=== PATIENT | male | born 1985 | race Caucasian/White ===

== ENCOUNTER 2018-07-25 15:30 | Inpatient (IN) | payer BC ==
--- NOTE | 2018-07-25 17:10 | ED ---
Psych HPI - General Chief Complaint: Psychiatric Symptoms Stated Complaint: DEPRESSION, SUICIDAL Time Seen by Provider: 07/25/18 15:42 Source: patient Mode of arrival: ambulatory - History of Present Illness Initial Comments: 32-year-old male past medical history depression presents today for chief complaint of suicidal ideation and plan. Patient states that 4 years ago after his divorce he was hospitalized that he went for severe depression and suicidal ideations patient states that he was discharged with medications for depression however 6 months later he discontinued use of medication due to improved symptoms. Patient states that since his discontinuation of medications he's been struggling with depression on and off. He states the past week he has been worsening. History states he had no will to live and held his shot gun to his head however he put it down and did not go through with attempt. Patient was mother about his attempt, who attempted to find a counselor today, she got him an appointment at her primary care provider who told her to take him immediately to the emergency department. Patient came willingly to the ER for evaluation. Upon arrival pt VS stable. BP elevated. Patient denies any homicidal ideations. Patient denies any recent fever, chills, shortness of breath, chest pain, back pain, abdominal pain, nausea or vomiting, numbness or tingling, dysuria or hematuria, constipation or diarrhea, headaches or visual changes, or any other complaints. - Related Data Home Medications Medication Instructions Recorded Confirmed Omeprazole [PriLOSEC] 20 mg PO AC-[id number] 07/25/18 07/25/18 Allergies Allergy/AdvReac Type Severity Reaction Status Date / Time No Known Allergies Allergy Verified 07/25/18 16:28 Review of Systems ROS Statement: Those systems with pertinent positive or pertinent negative responses have been documented in the HPI. ROS Other: All systems not noted in ROS Statement are negative. Constitutional: Denies: fever, chills ENT: Denies: ear pain, throat pain Respiratory: Denies: cough, dyspnea Cardiovascular: Denies: chest pain, palpitations Gastrointestinal: Denies: abdominal pain, nausea, vomiting, diarrhea, constipation Genitourinary: Denies: urgency, dysuria, frequency, hematuria Musculoskeletal: Denies: back pain Skin: Denies: rash, lesions Neurological: Denies: headache, weakness, numbness, paresthesias, confusion, abnormal gait Psychiatric: Reports: depression, suicidal thoughts. Denies: anxiety, auditory hallucinations, visual hallucinations, homicidal thoughts Past Medical History Past Medical History: No Reported History History of Any Multi-Drug Resistant Organisms: None Reported Past Surgical History: No Surgical Hx Reported Past Psychological History: No Psychological Hx Reported Smoking Status: Light tobacco smoker Past Alcohol Use History: None Reported Past Drug Use History: None Reported General Exam - General Exam Comments Initial Comments: General: The patient is awake and alert, in no distress, and does not appear acutely ill. Eye: Pupils are equal, round and reactive to light, extra-ocular movements are intact. No nystagmus. There is normal conjunctiva bilaterally. No signs of icterus. Ears, nose, mouth and throat: There are moist mucous membranes and no oral lesions. Neck: The neck is supple, there is no tenderness or JVD. Cardiovascular: There is a regular rate and rhythm. No murmur, rub or gallop is appreciated. Respiratory: Lungs are clear to auscultation, respirations are non-labored, breath sounds are equal. No wheezes, stridor, rales, or rhonchi. Gastrointestinal: Soft, non-distended, non-tender abdomen without masses or organomegaly noted. There is no rebound or guarding present. No CVA tenderness. Bowel sounds are unremarkable. Musculoskeletal: Normal ROM, no tenderness. Strength 5/5. Sensation intact. Pulses equal bilaterally 2+. Neurological: A&O x 3. CN II-XII intact, There are no obvious motor or sensory deficits. Coordination appears grossly intact. Speech is normal. Skin: Skin is warm and dry and no rashes or lesions are noted. Psychiatric: Cooperative, appropriate mood & affect, normal judgment. Limitations: no limitations Course Vital Signs 07/25/18 07/25/18 15:35 18:23 Temperature 98.7 F Pulse Rate 78 Pulse Rate [ 66 Right Sitting Brachial] Respiratory 18 16 Rate Blood Pressure 153/101 Blood Pressure 132/93 [Right Arm Sitting] O2 Sat by Pulse 98 Oximetry Medical Decision Making - Medical Decision Making TIMOTEO 0.00. Patient medically cleared. I spoke with EPS nurse who will perform an evaluation. EPS spoke with psychiatrist who accepted admission for suicidal ideation/plan. Patient was transferred to the floor in stable condition. Disposition Clinical Impression: Suicidal ideations, Planning to commit suicide Disposition: ADMITTED IP TO THIS [facility] Time of Disposition: 19:18 Decision to Admit Reason: Admit from Decision Time: 19:18
[2018-07-25] MEDS ORDERED: MAGNESIUM HYDROXIDE 2,400 MG/10 ML CUP PO PRN (18:46)
[2018-07-25] MEDS ORDERED: MAG HYDROX/AL HYDROX/SIMETH 30 ML CUP PO PRN (18:46)
[2018-07-25] MEDS ORDERED: ACETAMINOPHEN TAB 325 MG TAB PO PRN (18:46)
--- NOTE | 2018-07-25 23:55 | CONS ---
CONSULTATION DATE OF CONSULTATION: 07/25/2018 REASON FOR CONSULTATION: Medical management requested by Dr. Murdock. CONSULTATION: This is a pleasant 32-year-old patient who has just been established to see Dr. Prieto as a family doctor. The patient lives by himself. 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 The patient has been diagnosed with depression in the past, stopped taking medications about 3 years ago. Over a year ago, the patient's symptoms started coming back and started to get worse. Now, patient presents with worsening depression, suicidal ideation and therefore, presented to the ER. The patient's appetite has gone down. Patient has lost about 20 pounds in the last one month. Trouble sleeping, appetite has gone back. Only sometimes enjoys his work. Because of these symptoms, decided to present to the ER. Admitted for the same. Denies use of recreational drugs. REVIEW OF SYSTEMS: CONSTITUTIONAL: Decreased appetite and weight loss. HEENT: None. RESPIRATORY: None. GASTROINTESTINAL: None. GENITOURINARY: None. MUSCULOSKELETAL: None. Dermatological, hematologic, lymphatic none. PSYCHIATRY: Depressed and suicidal. NEUROLOGICAL none. PAST MEDICAL HISTORY: Depression. PAST SURGICAL HISTORY: None. SOCIAL HISTORY: Lives alone. 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 Does not smoke or drink alcohol. Occasionally does marijuana recreationally. FAMILY HISTORY: Reviewed, noncontributory to presentation. HOME MEDICATIONS: Home medications Prilosec 20 mg a day. ALLERGIES: None. PHYSICAL EXAMINATION: VITAL SIGNS: Temperature 99.5, pulse 71, respiration 16, blood pressure 120/80, pulse ox 98% on room air. GENERAL APPEARANCE: Well built, BMI 30.5, lying in bed, depressed appearing. EYES: Pupils equal. Conjunctivae are normal. Patient is well groomed. HEENT: External appearance of nose and ears. Oral cavity normal. NECK: JVD not raised. Mass not palpable. RESPIRATORY: Effort normal. LUNGS: Are clear. CARDIOVASCULAR: 1st and 2nd sounds normal. No edema. ABDOMEN: Soft, nontender. Liver and spleen not palpable. LYMPHATICS: No lymph nodes palpable in the neck and axillae. PSYCHIATRY: Alert and oriented x3. Mood and affect depressed-appearing. NEUROLOGICAL: Pupils equal. Cranial nerves grossly intact. Power and sensation grossly intact. INVESTIGATIONS: No lab work. ASSESSMENT: 1. Major depression with suicidal ideation, recurrent. 2. Chronic insomnia from depression. 3. Obesity BMI 30.5. PLAN: The patient should see a dietitian outpatient for weight loss measures and have a healthier diet. Meantime to continue with his Prilosec, antidepressants as per the psychiatrist. The patient should follow up with his family doctor upon discharge. Thank you, Dr. Murdock. Copy to Dr. Prieto. ADRIANNA / ANGIE: [phone] /
[2018-07-26] MEDS: PANTOPRAZOLE 40 MG TABLET PO SCH (08:57)
--- NOTE | 2018-07-26 10:25 | P.HP ---
Psychiatric H&P - . H&P Date: 07/26/18 History & Physical: Allergies Allergy/AdvReac Type Severity Reaction Status Date / Time No Known Allergies Allergy Verified 07/25/18 16:28 Vital Signs Temp 97.6 F 07/26/18 03:30 Pulse 52 L 07/26/18 03:30 Resp 16 07/26/18 03:30 BP 94/52 07/26/18 03:30 Pulse Ox 98 07/25/18 15:35 Intake & Output 07/25/18 07/26/18 07/26/18 18:59 06:59 18:59 Weight 108.862 kg 104.78 kg Assessment and Plan Assessment: History of Present Illness Initial Comments: 32-year-old male past medical history depression presents today for chief complaint of suicidal ideation and plan. Patient states that 4 years ago after his divorce he was hospitalized that he went for severe depression and suicidal ideations patient states that he was discharged with medications for depression however 6 months later he discontinued use of medication due to improved symptoms. Patient states that since his discontinuation of medications he's been struggling with depression on and off. He states the past week he has been worsening. History states he had no will to live and held his shot gun to his head however he put it down and did not go through with attempt. Patient was mother about his attempt, who attempted to find a counselor today, she got him an appointment at her primary care provider who told her to take him immediately to the emergency department. Patient came willingly to the ER for evaluation. Upon arrival pt VS stable. BP elevated. Patient denies any homicidal ideations. Patient denies any recent fever, chills, shortness of breath, chest pain, back pain, abdominal pain, nausea or vomiting, numbness or tingling, dysuria or hematuria, constipation or diarrhea, headaches or visual changes, or any other complaints. Past Medical History Past Medical History: No Reported History History of Any Multi-Drug Resistant Organisms: None Reported Past Surgical History: No Surgical Hx Reported Past Psychological History: No Psychological Hx Reported Smoking Status: Light tobacco smoker Past Alcohol Use History: None Reported Past Drug Use History: None Reported Musculoskeletal Examination - Abnormal/Involuntary Movements: [none Strength: [greater than antigravity (greater than/equal to 3/5) in all extremities Muscle Tone: [no impairment Gait: [grossly normal Station: [grossly normal Mental Status Examination - General Appearance: [casual,appears stated age Speech/Language: [slow, monotone, soft] Attitude/Behavior: [cooperative, withdrawn, indifferent] Mood: [depressed, euphoric, anxious, fearful, hopelessness] Affect: [ flat, incongruent, blunted constricted] Orientation: [time, person, place situation] Thought Content: [wnl] Risk Factors: [suicidal (ideation Perception: [wnl Thought Processes: [goal-oriented Concentration/Attention Span: [wnl] [Per observation and interview with the patient] Recent Memory: [wnl] [ 2 out of 3 in 3 minutes] Remote Memory: [wnl] [past events, as related history] Intelligence: [average] [based on history, based on vocabulary, syntax, grammar , and content] Judgement: [fair] [per patient's behavior/history of present illness] Insight: [fair] [understanding severity of illness/history of present illness] Admitting Diagnosis: [Major depressive disorderrecurrentsevere] Patient Strengths - Personal Skills: [x] Achievements: [x] Steady employment/financial stability: [x] Housing stability: [x] Able to vocalize needs: [x] Values and traditions: [x] Motivation, determination, readiness for change: [] Patient Limitations: [medication, non-compliance, lack of social supports, other] Initial Plan of Care: [Formal voluntary admission to behavioral health unit for severe depression. He will be evaluated by psychiatry, medicine, social work, nursing staff, recreational therapy and integrated into [facility] therapeutic environment. He will be observed for 15 minute checks for any suicidal ideation or attempts. He he appears to be a reliable historian.] Estimated Length of Stay: [5] Initial Discharge Plan: [[place], [facility], referred to therapist Prognosis: [good] Justification for Inpatient Hospitalization - [ depression resulting in significant loss of functioning.] [Dangerous to self with need for controlled environment.] [Emotional or behavioral conditions and complications requiring 24 hour medical and nursing care.] [Need for special drug therapy, or other therapeutic program requiring continuous hospitalization.] [Failure of social or occupational functioning.] [Inability to meet basic life and health needs.] (1) Major depressive disorder without psychotic features Current Visit: Yes Status: Acute Priority: High Code(s): F32.9 - MAJOR DEPRESSIVE DISORDER, SINGLE EPISODE, UNSPECIFIED SNOMED Code(s): 539986818 Plan: He will be placed on venlafaxine 37.5 extended release and Hytrin not Cardura for night sweats. However I currently is not on formulary. As mentioned above and he'll be admitted first psychiatric evaluation and medical workup and stabilization of his depression. He previously been at [facility] and he didn' t like the medicines that was placed on 3 years ago so we stopped them over a year ago. One the precipitating factors in this man's recurrence of depression as recent divorce, of his father and deployment of his brother [place]. Time with Patient: Greater than 30
[2018-07-26 10:58] LABS: Basophils % (A) 0 %; Eosinophils # (A) 0.1 k/uL (0-0.7); Eosinophils % (A) 1 %; HCT 46.9 % (39.0-53.0); HGB 16.1 gm/dL (13.0-17.5); Lymphocytes # (A) 1.6 k/uL (1.0-4.8); Lymphocytes % (A) 24 %; MCH 31.2 pg (25.0-35.0); MCHC 34.4 g/dL (31.0-37.0); MCV 90.5 fL (80.0-100.0); Mean Platelet Volume 6.6; Monocytes # (A) 0.3 k/uL (0-1.0); Monocytes % (A) 5 %; Neutrophils # (A) 4.6 k/uL (1.3-7.7); Neutrophils % (A) 68 %; Platelet Count 278 k/uL (150-450); RBC 5.18 m/uL (4.30-5.90); RDW 12.8 % (11.5-15.5); WBC 6.7 k/uL (3.8-10.6)
[2018-07-26 11:12] LABS: ALT 72 U/L (21-72); AST 36 U/L (17-59); Albumin 4.7 g/dL (3.5-5.0); Alkaline Phosphatase 43 U/L (38-126); Anion Gap 11 mmol/L; Blood Urea Nitrogen 17 mg/dL (9-20); Carbon Dioxide 23 mmol/L (22-30); Chloride 106 mmol/L (98-107); Glucose 114 mg/dL (74-99); Potassium 4.7 mmol/L (3.5-5.1); Sodium 140 mmol/L (137-145); Total Bilirubin 0.8 mg/dL (0.2-1.3); Total Protein 8.1 g/dL (6.3-8.2)
[2018-07-26 13:04] LABS: T4, Free (Free Thyroxine) 1.19 ng/dL (0.78-2.19)
[2018-07-26] MEDS: IBUPROFEN 600 MG TAB PO PRN ×2 (13:21→20:52)
[2018-07-26] MEDS: DOXAZOSIN 4 MG TAB PO SCH (20:49)
[2018-07-26] MEDS ORDERED: VENLAFAXINE HCL ER 37.5 MG CAP PO SCH (21:00)
[2018-07-27] MEDS: PANTOPRAZOLE 40 MG TABLET PO SCH (08:33)
[2018-07-27] MEDS: IBUPROFEN 600 MG TAB PO PRN ×2 (08:34→19:09)
--- NOTE | 2018-07-27 12:42 | P.PN ---
Subjective Progress Note Date: 07/27/18 Principal diagnosis: major depressive disorder-recurrent Feeling better but dizziness today Objective - Vital Signs Vital signs: Vital Signs Temp 98.6 F 07/27/18 06:00 Pulse 56 L 07/27/18 06:00 Resp 16 07/27/18 06:00 BP 99/54 07/27/18 06:00 Pulse Ox 98 07/25/18 15:35 - Labs CBC & Chem 7: 07/26/18 10:31 07/26/18 10:31 Assessment and Plan Assessment: History of Present Illness Initial Comments: 32-year-old male past medical history depression presents today for chief complaint of suicidal ideation and plan. Patient states that 4 years ago after his divorce he was hospitalized that he went for severe depression and suicidal ideations patient states that he was discharged with medications for depression however 6 months later he discontinued use of medication due to improved symptoms. Patient states that since his discontinuation of medications he's been struggling with depression on and off. He states the past week he has been worsening. History states he had no will to live and held his shot gun to his head however he put it down and did not go through with attempt. Patient was mother about his attempt, who attempted to find a counselor today, she got him an appointment at her primary care provider who told her to take him immediately to the emergency department. Patient came willingly to the ER for evaluation. Upon arrival pt VS stable. BP elevated. Patient denies any homicidal ideations. Patient denies any recent fever, chills, shortness of breath, chest pain, back pain, abdominal pain, nausea or vomiting, numbness or tingling, dysuria or hematuria, constipation or diarrhea, headaches or visual changes, or any other complaints. Past Medical History Past Medical History: No Reported History History of Any Multi-Drug Resistant Organisms: None Reported Past Surgical History: No Surgical Hx Reported Past Psychological History: No Psychological Hx Reported Smoking Status: Light tobacco smoker Past Alcohol Use History: None Reported Past Drug Use History: None Reported Musculoskeletal Examination - Abnormal/Involuntary Movements: [none Strength: [greater than antigravity (greater than/equal to 3/5) in all extremities Muscle Tone: [no impairment Gait: [grossly normal Station: [grossly normal Mental Status Examination - General Appearance: [casual,appears stated age Speech/Language: [slow, monotone, soft] Attitude/Behavior: [cooperative, withdrawn, indifferent] Mood: [depressed (5/10) , anxious (2/10), fearful, hopelessness] Affect: [ flat, incongruent, blunted constricted] Orientation: [time, person, place situation] Thought Content: [wnl] Risk Factors: [suicidal (ideation Perception: [wnl Thought Processes: [goal-oriented no racing thoughts Concentration/Attention Span: [wnl] [Per observation and interview with the patient] Recent Memory: [wnl] [ 2 out of 3 in 3 minutes] Remote Memory: [wnl] [past events, as related history] Intelligence: [average] [based on history, based on vocabulary, syntax, grammar , and content] Judgement: [fair] [per patient's behavior/history of present illness] Insight: [fair] [understanding severity of illness/history of present illness] Able to sleep Admitting Diagnosis: [Major depressive disorderrecurrentsevere] Patient Strengths - Personal Skills: [x] Achievements: [x] Steady employment/financial stability: [x] Housing stability: [x] Able to vocalize needs: [x] Values and traditions: [x] Motivation, determination, readiness for change: [x] Patient Limitations: [medication, non-compliance, lack of social supports Initial Plan of Care: [Formal voluntary admission to behavioral health unit for severe depression. He will be evaluated by psychiatry, medicine, social work, nursing staff, recreational therapy and integrated into [facility] therapeutic environment. He will be observed for 15 minute checks for any suicidal ideation or attempts. He he appears to be a reliable historian.] Estimated Length of Stay: [4] Initial Discharge Plan: [[place], [facility], referred to therapist Prognosis: [good] Justification for Inpatient Hospitalization - [ depression resulting in significant loss of functioning.] [Dangerous to self with need for controlled environment.] [Emotional or behavioral conditions and complications requiring 24 hour medical and nursing care.] [Need for special drug therapy, or other therapeutic program requiring continuous hospitalization.] [Failure of social or occupational functioning.] [Inability to meet basic life and health needs.] (1) Major depressive disorder without psychotic features Current Visit: Yes Status: Acute Priority: High Code(s): F32.9 - MAJOR DEPRESSIVE DISORDER, SINGLE EPISODE, UNSPECIFIED SNOMED Code(s): 467783837 Plan: He will be placed on venlafaxine 75 extended release and Hytrin not Cardura for night sweats. However I currently is not on formulary. As mentioned above and he'll be admitted first psychiatric evaluation and medical workup and stabilization of his depression. He previously been at [facility] and he didn' t like the medicines that was placed on 3 years ago so we stopped them over a year ago. One the precipitating factors in this man's recurrence of depression as recent divorce, of his father and deployment of his brother over seas. Time with Patient: Less than 30
[2018-07-27] MEDS: DOXAZOSIN 4 MG TAB PO SCH (20:10)
[2018-07-27] MEDS ORDERED: VENLAFAXINE HCL ER 75 MG CAP PO SCH (21:00)
[2018-07-28] MEDS: IBUPROFEN 600 MG TAB PO PRN ×3 (05:23→21:21)
[2018-07-28] MEDS: PANTOPRAZOLE 40 MG TABLET PO SCH (07:34)
--- NOTE | 2018-07-28 11:07 | P.PN ---
Subjective Progress Note Date: 07/28/18 Principal diagnosis: major depressive disorder-recurrent Feeling better but dizziness today Objective - Vital Signs Vital signs: Vital Signs Temp 97.6 F 07/28/18 06:16 Pulse 82 07/28/18 08:45 Resp 18 07/28/18 08:45 BP 130/69 07/28/18 08:45 Pulse Ox 98 07/25/18 15:35 - Labs CBC & Chem 7: 07/26/18 10:31 07/26/18 10:31 Assessment and Plan Assessment: History of Present Illness Initial Comments: 32-year-old male past medical history depression presents today for chief complaint of suicidal ideation and plan. Patient states that 4 years ago after his divorce he was hospitalized that he went for severe depression and suicidal ideations patient states that he was discharged with medications for depression however 6 months later he discontinued use of medication due to improved symptoms. Patient states that since his discontinuation of medications he's been struggling with depression on and off. He states the past week he has been worsening. History states he had no will to live and held his shot gun to his head however he put it down and did not go through with attempt. Patient was mother about his attempt, who attempted to find a counselor today, she got him an appointment at her primary care provider who told her to take him immediately to the emergency department. Patient came willingly to the ER for evaluation. Upon arrival pt VS stable. BP elevated. Patient denies any homicidal ideations. Patient denies any recent fever, chills, shortness of breath, chest pain, back pain, abdominal pain, nausea or vomiting, numbness or tingling, dysuria or hematuria, constipation or diarrhea, headaches or visual changes, or any other complaints. Past Medical History Past Medical History: No Reported History History of Any Multi-Drug Resistant Organisms: None Reported Past Surgical History: No Surgical Hx Reported Past Psychological History: No Psychological Hx Reported Smoking Status: Light tobacco smoker Past Alcohol Use History: None Reported Past Drug Use History: None Reported Musculoskeletal Examination - Abnormal/Involuntary Movements: [none Strength: [greater than antigravity (greater than/equal to 3/5) in all extremities Muscle Tone: [no impairment Gait: [grossly normal Station: [grossly normal Mental Status Examination - General Appearance: [casual,appears stated age Speech/Language: [slow, monotone, soft] Attitude/Behavior: [cooperative, withdrawn, indifferent] Mood: [depressed (5/10) , anxious (2/10), fearful, hopelessness] Affect: [ flat, incongruent, blunted constricted] Orientation: [time, person, place situation] Thought Content: [wnl] Risk Factors: [suicidal (ideation Perception: [wnl Thought Processes: [goal-oriented no racing thoughts Concentration/Attention Span: [wnl] [Per observation and interview with the patient] Recent Memory: [wnl] [ 2 out of 3 in 3 minutes] Remote Memory: [wnl] [past events, as related history] Intelligence: [average] [based on history, based on vocabulary, syntax, grammar , and content] Judgement: [fair] [per patient's behavior/history of present illness] Insight: [fair] [understanding severity of illness/history of present illness] Able to sleep Admitting Diagnosis: [Major depressive disorderrecurrentsevere] Patient Strengths - Personal Skills: [x] Achievements: [x] Steady employment/financial stability: [x] Housing stability: [x] Able to vocalize needs: [x] Values and traditions: [x] Motivation, determination, readiness for change: [x] Patient Limitations: [medication, non-compliance, lack of social supports Initial Plan of Care: [Formal voluntary admission to behavioral health unit for severe depression. He will be evaluated by psychiatry, medicine, social work, nursing staff, recreational therapy and integrated into [facility] therapeutic environment. He will be observed for 15 minute checks for any suicidal ideation or attempts. He he appears to be a reliable historian.] Estimated Length of Stay: [3] Initial Discharge Plan: [[place], [facility], referred to therapist Prognosis: [good] Justification for Inpatient Hospitalization - [ depression resulting in significant loss of functioning.] [Dangerous to self with need for controlled environment.] [Emotional or behavioral conditions and complications requiring 24 hour medical and nursing care.] [Need for special drug therapy, or other therapeutic program requiring continuous hospitalization.] [Failure of social or occupational functioning.] [Inability to meet basic life and health needs.] (1) Major depressive disorder without psychotic features Current Visit: Yes Status: Acute Priority: High Code(s): F32.9 - MAJOR DEPRESSIVE DISORDER, SINGLE EPISODE, UNSPECIFIED SNOMED Code(s): 981042474 Plan: He will be placed on venlafaxine 75 extended release qam and tenormin 25 mg po qam. As mentioned above and he'll be admitted first psychiatric evaluation and medical workup and stabilization of his depression. He previously been at [facility] and he didn't like the medicines that was placed on 3 years ago so we stopped them over a year ago. One the precipitating factors in this man's recurrence of depression as recent divorce, of his father and deployment of his brother over seas. Time with Patient: Less than 30
[2018-07-29] MEDS: VENLAFAXINE HCL ER 75 MG CAP PO SCH (07:51)
[2018-07-29] MEDS: ATENOLOL 25 MG TAB PO SCH (07:51)
[2018-07-29] MEDS: PANTOPRAZOLE 40 MG TABLET PO SCH (07:51)
--- NOTE | 2018-07-29 08:48 | P.PN ---
Progress Note - Text Progress Note Date: 07/29/18 Interval history: Patient seen in cross coverage today. He reports that today was his first day of taking the Effexor in the morning. He states that he does have possible side effect of restless energy with it. His mood is improved. He says he slept well last night. Mental status exam: He is alert and cooperative with the interview. His speech is fluent, not rapid or pressured. Thought processes are organized. He does have mood improvement. He denies any thoughts of harm to self or others. No evidence of psychosis or agitation. Plan: Patient will be maintained on current psychotropic medication regimen. Continue to monitor for medication side effects monitor his ongoing response to treatment.
[2018-07-29] MEDS: TRIAMCINOLONE 0.1% CREAM 80 GM TUBE TOPICAL SCH (20:38)
[2018-07-29] MEDS: IBUPROFEN 600 MG TAB PO PRN (21:55)
[2018-07-30] MEDS: TRIAMCINOLONE 0.1% CREAM 80 GM TUBE TOPICAL SCH ×2 (07:46→20:13)
[2018-07-30] MEDS: VENLAFAXINE HCL ER 75 MG CAP PO SCH (07:46)
[2018-07-30] MEDS: ATENOLOL 25 MG TAB PO SCH (07:46)
[2018-07-30] MEDS: PANTOPRAZOLE 40 MG TABLET PO SCH (07:46)
[2018-07-30] MEDS: IBUPROFEN 600 MG TAB PO PRN ×2 (11:24→20:48)
--- NOTE | 2018-07-30 12:25 | P.PN ---
Progress Note - Text Progress Note Date: 07/30/18 Interval history: Patient is seen in [facility] again today. Reports he slept about 5-6 hours last night. He seems to be doing better with taking the Effexor XR in the morning. He doesn't describe any adverse side effects today. He does feel like his mood is doing better. He does feel like he would be ready for discharge as early as tomorrow. He is attending groups. His appetite seems to be good. Mental status exam: He is alert and cooperative with the interview. His speech is fluent, not rapid or pressured. Thought processes are organized. His mood is improved. He denies any thoughts of harm to self or others. There is no evidence of psychosis or agitation. Plan: Patient will be maintained on current psychotropic medication regimen. Continue to monitor for any adverse psychotropic medication side effects and monitor his ongoing response to treatment.
[2018-07-31] MEDS: PANTOPRAZOLE 40 MG TABLET PO SCH (08:18)
[2018-07-31] MEDS: VENLAFAXINE HCL ER 75 MG CAP PO SCH (08:19)
[2018-07-31] MEDS: ATENOLOL 25 MG TAB PO SCH (08:19)
[2018-07-31] MEDS: TRIAMCINOLONE 0.1% CREAM 80 GM TUBE TOPICAL SCH ×2 (08:20→21:32)
[2018-07-31] MEDS: IBUPROFEN 600 MG TAB PO PRN ×2 (08:55→19:16)
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
[2018-07-31 14:11] VITALS: BMI 30.7
[2018-07-31] MEDS ORDERED: VENLAFAXINE HCL ER 150 MG CAP PO SCH (21:00)
[2018-08-01 06:25] VITALS: BP 106/58; PULSE 69; RESP 18; TEMP 97.9
[2018-08-01] MEDS: TRIAMCINOLONE 0.1% CREAM 80 GM TUBE TOPICAL SCH (08:16)
[2018-08-01] MEDS: PANTOPRAZOLE 40 MG TABLET PO SCH (08:17)
[2018-08-01] MEDS: ATENOLOL 25 MG TAB PO SCH (08:17)
[2018-08-01] MEDS: IBUPROFEN 600 MG TAB PO PRN (09:13)
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
[2018-08-02] MEDS ORDERED: VENLAFAXINE HCL ER 150 MG CAP PO SCH (09:00)
== END 2018-08-01 13:40 | disposition home or self-care (01) | DRG 880 ==
LOC: EC 15:30 → 3MHU 18:45
PROVIDERS: ADMIT Psychiatry & Neurology Psychiatry; ATTEND Psychiatry & Neurology Psychiatry
DX: R45.851 Suicidal ideations (principal); F33.9 Major depressive disorder, recurrent, unspecified; E66.9 Obesity, unspecified; R42 Dizziness and giddiness; Z68.30 Body mass index [BMI] 30.0-30.9, adult; Z79.899 Other long term (current) drug therapy
CPT/HCPCS: 80053; 82075; 84439; 84443; 84480; 85025; 99285

== ENCOUNTER 2020-12-01 15:49 | Inpatient (IN) | payer MEDICAID, OTHER ==
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
[2020-12-01 16:23] LABS: Appearance,Urine Clear (Clear); Bilirubin,Urine 1+ (Negative); Blood,Urine Trace (Negative); Color,Urine Yellow; Glucose,Urine (UA) Negative (Negative); Hyaline Casts,Urine 7 /lpf (0-2); Ketones,Urine 3+ (Negative); Leukocyte Esterase,Urine Negative (Negative); Mucus,Urine Many /hpf; Nitrite,Urine Negative (Negative); PH, Urine 5.5 (5.0-8.0); Protein,Urine 2+ (Negative); RBC,Urine 3 /hpf (0-5); Specific Gravity,Urine 1.033 (1.001-1.035); Squamous Epithelial Cell,Urine 1 /hpf (0-4); WBC,Urine 5 /hpf (0-5)
[2020-12-01 16:28] LABS: Amphetamine Screen,Urine Not Detected (NotDetected); Barbiturate Screen,Urine Not Detected (NotDetected); Benzodiazepines Screen,Urine Not Detected (NotDetected); Cocaine Screen,Urine Not Detected (NotDetected); Methadone Screen, Urine Not Detected (NotDetected); Opiate Screen,Urine Not Detected (NotDetected); Oxycodone Screen, Urine Not Detected (NotDetected); Phencyclidine Screen,Urine Not Detected (NotDetected); Tricyclic Antidepressant,Urine Not Detected (NotDetected); Urn Cannabinoid Scrn Detected (NotDetected)
[2020-12-01 16:58] LABS: Basophils % (A) 0 %; Eosinophils # (A) 0.1 k/uL (0-0.7); Eosinophils % (A) 1 %; HGB 16.3 gm/dL (13.0-17.5); Lymphocytes # (A) 1.7 k/uL (1.0-4.8); Lymphocytes % (A) 15 %; MCH 31.9 pg (25.0-35.0); MCHC 35.4 g/dL (31.0-37.0); MCV 90.1 fL (80.0-100.0); Mean Platelet Volume 6.9; Monocytes # (A) 0.4 k/uL (0-1.0); Monocytes % (A) 4 %; Neutrophils # (A) 8.8 k/uL (1.3-7.7); Neutrophils % (A) 79 %; Platelet Count 282 k/uL (150-450); RDW 12.6 % (11.5-15.5); WBC 11.2 k/uL (3.8-10.6)
[2020-12-01 17:10] LABS: ALT 67 U/L (4-49); AST 35 U/L (17-59); African American GFR (CKD) >90 (>60 ml/min/1.73 sqM); Albumin 4.8 g/dL (3.5-5.0); Alkaline Phosphatase 55 U/L (38-126); Anion Gap 13 mmol/L; Blood Urea Nitrogen 12 mg/dL (9-20); Calcium 9.7 mg/dL (8.4-10.2); Carbon Dioxide 23 mmol/L (22-30); Chloride 104 mmol/L (98-107); Glucose 122 mg/dL (74-99); Non-African American GFR(CKD) >90 (>60 ml/min/1.73 sqM); Potassium 3.9 mmol/L (3.5-5.1); Sodium 140 mmol/L (137-145); Total Bilirubin 0.7 mg/dL (0.2-1.3)
--- NOTE | 2020-12-01 17:19 | CT ---
EXAMINATION TYPE: CT abdomen pelvis wo/w con DATE OF EXAM: 12/01/2020 COMPARISON: None HISTORY: Hematuria, painful urination CT DLP: 2465.3 mGycm Automated exposure control for dose reduction was used. TECHNIQUE: Helical acquisition of images was performed from the lung bases through the pelvis. CONTRAST: Performed without Oral Contrast and without and with IV Contrast, patient injected with 100 mL of Iso izzy 300. FINDINGS: LUNG BASES: No significant abnormality is appreciated. LIVER/GB: No significant abnormality is appreciated. PANCREAS: No significant abnormality is seen. SPLEEN: No significant abnormality is seen. ADRENALS: No significant abnormality is seen. KIDNEYS: No significant abnormality is seen. FREE AIR: No free air is visualized. RETROPERITONEAL ADENOPATHY: None visualized REPRODUCTIVE ORGANS: No significant abnormality is seen URINARY BLADDER: No significant abnormality is seen. PELVIC ADENOPATHY: None visualized. OSSEOUS STRUCTURES: No significant abnormality is seen. BOWEL: No significant abnormality is seen. IMPRESSION: THERE IS NO EVIDENCE OF HYDRONEPHROSIS OR NEPHROLITHIASIS. NO STONES ARE SEEN IN THE URETERAL COURSE OR BLADDER. ETIOLOGY FOR PATIENT'S URINARY SYMPTOMS UNCLEAR. UROLOGY CONSULTATION ON A ROUTINE BASIS MAY BE CONSIDERED.
[2020-12-01] MEDS ORDERED: ACETAMINOPHEN TAB 325 MG TAB PO PRN (22:45)
[2020-12-01] MEDS ORDERED: MAGNESIUM HYDROXIDE 2,400 MG/10 ML CUP PO PRN (22:45)
[2020-12-01] MEDS ORDERED: MAG HYDROX/AL HYDROX/SIMETH 30 ML CUP PO PRN (22:45)
[2020-12-01] MEDS ORDERED: HALOPERIDOL LACTATE 5 MG/ML 1 ML VIAL IM PRN (22:49)
[2020-12-01] MEDS ORDERED: haloperidoL 5 MG TAB PO PRN (22:49)
[2020-12-01] MEDS ORDERED: LORazepam 2 MG/ML INJ IM PRN (22:49)
[2020-12-01] MEDS: LORazepam 1 MG TAB PO PRN (23:17)
[2020-12-02] MEDS: NICOTINE 14MG/24HR PATCH TRANSDERM SCH ×2 (04:18→08:22)
[2020-12-02] MEDS: TRIAMCINOLONE 0.1% CREAM 80 GM TUBE TOPICAL SCH ×2 (08:22→20:14)
[2020-12-02] MEDS: LURASIDONE 40 MG TAB PO SCH (08:23)
[2020-12-02] MEDS ORDERED: INFLUENZA VACCINE (6 MOS+) 60 MCG/0.5 ML SYRINGE IM ONE (09:00)
--- NOTE | 2020-12-02 11:30 | P.HP ---
Psychiatric H&P - . H&P Date: 12/02/20 History & Physical: Allergies Allergy/AdvReac Type Severity Reaction Status Date / Time [facility] Allergy Unknown Verified 12/01/20 19:24 Vital Signs Temp 98.4 F 12/01/20 23:29 Pulse 74 12/01/20 23:29 Resp 16 12/01/20 23:29 BP 127/76 12/01/20 23:29 Pulse Ox 97 12/01/20 15:53 Intake & Output 12/01/20 12/02/20 12/02/20 18:59 06:59 18:59 Weight 115.666 kg 110.45 kg Laboratory Last Values WBC 11.2 k/uL (3.8-10.6) H 12/01/20 16:47 RBC 5.10 m/uL (4.30-5.90) 12/01/20 16:47 Hgb 16.3 gm/dL (13.0-17.5) 12/01/20 16:47 Hct 46.0 % (39.0-53.0) 12/01/20 16:47 MCV 90.1 fL (80.0-100.0) 12/01/20 16:47 MCH 31.9 pg (25.0-35.0) 12/01/20 16:47 MCHC 35.4 g/dL (31.0-37.0) 12/01/20 16:47 RDW 12.6 % (11.5-15.5) 12/01/20 16:47 Plt Count 282 k/uL (150-450) 12/01/20 16:47 MPV 6.9 12/01/20 16:47 Neutrophils % 79 % 12/01/20 16:47 Lymphocytes % 15 % 12/01/20 16:47 Monocytes % 4 % 12/01/20 16:47 Eosinophils % 1 % 12/01/20 16:47 Basophils % 0 % 12/01/20 16:47 Neutrophils # 8.8 k/uL (1.3-7.7) H 12/01/20 16:47 Lymphocytes # 1.7 k/uL (1.0-4.8) 12/01/20 16:47 Monocytes # 0.4 k/uL (0-1.0) 12/01/20 16:47 Eosinophils # 0.1 k/uL (0-0.7) 12/01/20 16:47 Basophils # 0.0 k/uL (0-0.2) 12/01/20 16:47 Sodium 140 mmol/L (137-145) 12/01/20 16:47 Potassium 3.9 mmol/L (3.5-5.1) 12/01/20 16:47 Chloride 104 mmol/L (98-107) 12/01/20 16:47 Carbon Dioxide 23 mmol/L (22-30) 12/01/20 16:47 Anion Gap 13 mmol/L 12/01/20 16:47 BUN 12 mg/dL (9-20) 12/01/20 16:47 Creatinine 0.94 mg/dL (0.66-1.25) 12/01/20 16:47 Est GFR (CKD-EPI)AfAm >90 (>60 ml/min/1.73 sqM) 12/01/20 16:47 Est GFR (CKD-EPI)NonAf >90 (>60 ml/min/1.73 sqM) 12/01/20 16:47 Glucose 122 mg/dL (74-99) H 12/01/20 16:47 Calcium 9.7 mg/dL (8.4-10.2) 12/01/20 16:47 Total Bilirubin 0.7 mg/dL (0.2-1.3) 12/01/20 16:47 AST 35 U/L (17-59) 12/01/20 16:47 ALT 67 U/L (4-49) H 12/01/20 16:47 Alkaline Phosphatase 55 U/L (38-126) 12/01/20 16:47 Total Protein 8.0 g/dL (6.3-8.2) 12/01/20 16:47 Albumin 4.8 g/dL (3.5-5.0) 12/01/20 16:47 Urine Color Yellow 12/01/20 16:13 Urine Appearance Clear (Clear) 12/01/20 16:13 Urine pH 5.5 (5.0-8.0) 12/01/20 16:13 Ur Specific [place] 1.033 (1.001-1.035) 12/01/20 16:13 Urine Protein 2+ (Negative) H 12/01/20 16:13 Urine Glucose (UA) Negative (Negative) 12/01/20 16:13 Urine Ketones 3+ (Negative) H 12/01/20 16:13 Urine Blood Trace (Negative) H 12/01/20 16:13 Urine Nitrite Negative (Negative) 12/01/20 16:13 Urine Bilirubin 1+ (Negative) H 12/01/20 16:13 Urine Urobilinogen 2.0 mg/dL (<2.0) 12/01/20 16:13 Ur Leukocyte Esterase Negative (Negative) 12/01/20 16:13 Urine RBC 3 /hpf (0-5) 12/01/20 16:13 Urine WBC 5 /hpf (0-5) 12/01/20 16:13 Ur Squamous Epith Cells 1 /hpf (0-4) 12/01/20 16:13 Hyaline Casts 7 /lpf (0-2) H 12/01/20 16:13 Urine Mucus Many /hpf (None) H 12/01/20 16:13 Urine Opiates Screen Not Detected (NotDetected) 12/01/20 16:13 Ur Oxycodone Screen Not Detected (NotDetected) 12/01/20 16:13 Urine Methadone Screen Not Detected (NotDetected) 12/01/20 16:13 Ur Propoxyphene Screen Not Detected (NotDetected) 12/01/20 16:13 Ur Barbiturates Screen Not Detected (NotDetected) 12/01/20 16:13 U Tricyclic Antidepress Not Detected (NotDetected) 12/01/20 16:13 Ur Phencyclidine Scrn Not Detected (NotDetected) 12/01/20 16:13 Ur Amphetamines Screen Not Detected (NotDetected) 12/01/20 16:13 U Methamphetamines Scrn Not Detected (NotDetected) 12/01/20 16:13 U Benzodiazepines Scrn Not Detected (NotDetected) 12/01/20 16:13 Urine Cocaine Screen Not Detected (NotDetected) 12/01/20 16:13 U Marijuana (THC) Screen Detected (NotDetected) H 12/01/20 16:13 Coronavirus (PCR) Not Detected (Not Detectd) 12/01/20 19:07 12/02/20 11:22 IDENTIFYING DATA: Patient is a 35-year-old male who is currently lives alone in an apartment and 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 HPI: Patient presented to the hospital yesterday with complaints of ongoing depression. According to ER report patient apparently had put a shotgun in his bath 2 times yesterday however was unable to pull the trigger. He stated that he has been having an increase in his suicidal thoughts feeling more lonely and depressed and spoke about his divorce in the ER. He also had an issue with hematuria and had a computed tomography scan which was negative however will be following up with urology once he is discharged. Patient's UDS is positive for marijuana. Patient was seen wandering the hallways today and agreeable speech regular in the office. He appeared to have poor hygiene and grooming however states that he has been dealing with depression for over 5 years now. He claims that yesterday he was crying and his friend over the phone who brought him in the hospital. He claims that he had a ketamine infusion however states that "I was in a bad mindset with it". He states that he has been having negative thoughts towards it and also had a "bad episode" however was vague about what this meant. He states that he was preoccupied with his self-hate and suicidal thoughts and spoke about being a "failure" and also spoke about "being ". He states that he has been doing the ketamine infusion for the past 4 months now and states that he doesn't once a month in [place]. He states that the last dose did not help him as the previous ones . He claimed that he's been having poor sleep and poor appetite. He admits to ongoing anxiety. He states that the guns that he put in his mouth were at his parent's house and are now locked away and he does not have any guns at his apartment.. He does not admit to any history of manic episodes in the past. Patient denies any suicidal or homicidal ideations intent or plan. At this time patient denies any auditory or visual hallucinations. Patient denies any flight of ideas racing thoughts and increased in goal directed behavior. Patient admits to using marijuana frequently. He denies any other recreational drug use. PAST PSYCHIATRIC HISTORY: Patient states that he has a diagnosis of depression. Patient has been tried on different antidepressants in the past including Effexor and his last psychiatric hospitalization. He claims that currently he is on Latuda which is prescribed by his PCP. Patient was last admitted to the psychiatric hospital in August 2018. Patient has been going to receive monthly ketamine infusions in [place] for his depression. His last infusion was yesterday. He states that he has no specific suicide attempts in the past however has put a gun in his mouth previously however has not pull the trigger. PMH:denies ALLERGIES: as per EMR CHEMICAL DEPENDENCY HISTORY: as per HPI FAMILY PSYCHIATRIC/SUBSTANCE USE HISTORY: Depression and bipolar apparently run in his family. SOCIAL HISTORY: Patient was born and raised in [facility]. He states that he completed some college and completed high school. 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 He states that currently he is lives alone in an apartment. He denies any legal history. MENTAL STATUS EXAM: General Appearance: Patient appears to be tall, well-built, stated age is alert, directable, and attempts to cooperate. Constricted affect. Patient appears to have poor hygiene and grooming. Behavior: Patient is seated without any agitated behavior. Speech: Patient's speech is fluent and nonpressured. Soft tone of voice. Mood/Affect: Patient reports their mood is depressed and anxious, affect is congruent and constricted. Suicidality/Homicidality: Patient denies having any homicidal ideation intent or plan. Denies any suicidal ideations intent or plan Perceptions: Patient denies any visual hallucinations and denies any auditory hallucinations Though content/process: Focused on his stressors and his symptoms. Logical and goal oriented. Memory and concentration: AOX3, grossly intact for the purposes of this session. Can spell "WORLD" backwards Judgment and insight: poor STRENGTHS/WEAKNESSES: strength is that patient is resilient. Weakness is that patient has \\chronic depression and several social stressors. INTELLECT: average IMPRESSIONS: Major depressive disorder, recurrent, severe without psychotic features Anxiety disorder unspecified Cannabis use disorder PLAN: -Patient is admitted under voluntary status to MHU for stabilization of psychiatric symptoms and safety. Patient has signed adult voluntary form and medication consent and is placed in patient's chart. -Medications : Will start patient on Zoloft 50 mg daily for mood/anxiety. Patient is also agreeable to start trazodone 50 mg daily at bedtime for mood/insomnia. Vistaril when necessary for anxiety. -Ativan and Haldol PRN for agitation/aggression -Patient was counselled on substance abuse and desired to cut back on use -Patient was informed of the risks, benefits and side effects of the medication and patient verbally consented to taking the medications. Patient signed med consent form and was placed in chart. -Internal Medicine consult to perform medical evaluation and physical. -NRT - not needed as patient does not smoke -SW on board for discharge planning. Encourage patient to participate in groups to work on coping skills. 12/02/20 11:29
[2020-12-02] MEDS: SERTRALINE 50 MG TAB PO SCH (11:39)
[2020-12-02] MEDS: LORazepam 1 MG TAB PO PRN ×3 (11:40→23:00)
[2020-12-02] MEDS: hydrOXYzine pamoate 25 MG CAP PO PRN (20:15)
[2020-12-02] MEDS ORDERED: traZODone HCL 50 MG TAB PO SCH (21:00)
--- NOTE | 2020-12-02 22:38 | P.CONS ---
History of Present Illness - Reason for Consult Consult date: 12/02/20 Medical management Requesting physician: Justus Felix - Chief Complaint Depressed - History of Present Illness Consultation: This is a 35-year-old patient, Dr. Arie Prieto. Patient has been out of job for about a year and a half. Used to work in the [employer] and history. Lives alone. Patient been dealing with depression for quite a while. Patient became suicidal. No cog on and wanted to shoot himself. Did not get to GERD. He called his friend. He was at his parents house. Has not been sleeping well. Decreased appetite. Bowels are okay. She has noticed some blood in the urine. A computed tomography scan was ordered by his family doctor. Had been rather de pressed. Since coming here to [facility]. is feeling active better. No fever no chills. Review of systems: GEN.: Decreased appetite EYES: None HEENT: None NECK: None RESPIRATORY: None CARDIOVASCULAR: None GASTROINTESTINAL: None GENITOURINARY: None MUSCULOSKELETAL: None LYMPHATICS: None HEMATOLOGICAL: None PSYCHIATRY: Depressed anxiety NEUROLOGICAL: Decreased sleep Past medical history: Unremarkable Social history: Lives alone. Does not smoke or drink alcohol. Occasional marijuana. 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 Family history: Reviewed, noncontributory to presentation Physical examination: VITAL SIGNS: 98.4, 74, 16, 1 /, 97% room air GENERAL: Average built, sitting up, comfortable. EYES: Pupils equal. Conjunctiva normal. HEENT: External appearance of nose and ears normal, oral cavity grossly normal. NECK: JVD not raised; masses not palpable. HEART: First and second heart sounds are normal; no edema. LUNGS: Respiratory rate normal; clear to auscultation. ABDOMEN: Soft, nontender, liver spleen not palpable, no masses palpable. PSYCH: Alert and oriented x3; mood and affect normal. NEUROLOGICAL: Cranial nerves grossly intact; no facial asymmetry, power and sensation grossly intact. LYMPHATICS: No lymph nodes palpable in the axilla and neck INVESTIGATIONS, reviewed in the clinical context: White count 11.2 hemoglobin 16.3 platelets 22 potassium 3.9 creatinine 0.94 UA protein 2+ ketones 3+ bilirubin 1+ hiding casts 7 Urine drug screen positive for marijuana Assessment and plan: -Major depression recurrent with acute episode with suicide ideas. Has been placed on lead II the and Zoloft by the psychiatrist -Chronic insomnia likely from depression, hopefully do better but does -Anorexia from depression. Discussed with the patient. 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 -Hematuria. This is being worked up by his family doctor. Computed tomography scan was unremarkable. To follow-up with urology as an outpatient. Patient encouraged to increase his oral intake including water intake. -Recreational marijuana use Patient is to follow-up with his family doctor upon discharge. Care was discussed with the patient. Thank you Dr. Felix Past Medical History Past Medical History: No Reported History History of Any Multi-Drug Resistant Organisms: None Reported Past Surgical History: No Surgical Hx Reported Past Anesthesia/Blood Transfusion Reactions: No Reported Reaction Past Psychological History: No Psychological Hx Reported Smoking Status: Never smoker Past Alcohol Use History: None Reported Additional Past Alcohol Use History / Comment(s): Pt denies use Past Drug Use History: None Reported Medications and Allergies Home Medications Medication Instructions Recorded Confirmed Type Ketoconazole [Ketoconazole 2% 1 applic TOPICAL DAILY 12/01/20 12/01/20 History Shampoo] Lurasidone [Latuda] 40 mg PO DAILY 12/01/20 12/01/20 History Triamcinolone 0.1% Cream [Kenalog 1 applicatio TOPICAL BID 12/01/20 12/01/20 History 0.1% Cream] Allergies Allergy/AdvReac Type Severity Reaction Status Date / Time cariprazine [From [facility]] Allergy Unknown Verified 12/01/20 19:24 Physical Exam Vitals: Vital Signs Temp Pulse Pulse Resp BP BP Pulse Ox 12/01/20 23:29 98.4 F 74 16 127/76 12/01/20 15:53 98.7 F 87 18 131/98 97 Intake and Output 12/01/20 12/02/20 12/02/20 22:59 06:59 14:59 Other: Weight 115.666 kg 110.45 kg Results CBC & Chem 7: 12/01/20 16:47 12/01/20 16:47 Labs: Abnormal Lab Results - Last 24 Hours (Table) 12/01/20 12/01/20 12/01/20 Range/Units 16:13 16:13 16:47 WBC 11.2 H (3.8-10.6) k/uL Neutrophils # 8.8 H (1.3-7.7) k/uL Glucose (74-99) mg/dL ALT (4-49) U/L Urine Protein 2+ H (Negative) Urine Ketones 3+ H (Negative) Urine Blood Trace H (Negative) Urine Bilirubin 1+ H (Negative) Hyaline Casts 7 H (0-2) /lpf Urine Mucus Many H (None) /hpf U Marijuana (THC) Screen Detected H (NotDetected) 12/01/20 Range/Units 16:47 WBC (3.8-10.6) k/uL Neutrophils # (1.3-7.7) k/uL Glucose 122 H (74-99) mg/dL ALT 67 H (4-49) U/L Urine Protein (Negative) Urine Ketones (Negative) Urine Blood (Negative) Urine Bilirubin (Negative) Hyaline Casts (0-2) /lpf Urine Mucus (None) /hpf U Marijuana (THC) Screen (NotDetected)
[2020-12-03] MEDS ORDERED: diphenhydrAMINE 25 MG CAP PO PRN (09:17)
--- NOTE | 2020-12-03 09:20 | P.PN ---
Progress Note - Text Progress Note Date: 12/03/20 Interval History: Patient was seen wandering the hallways and was directable and agreeable to katya richardson with tag writer in the office. Patient appears to have mild improvement in his affect today. He states that he is feeling mild improvement in his mood however continues to feel anxious. He states that he was not able to sleep well last night and claims that he "had to go through all my pills last night to get some sleep". He states that he would like to have his trazodone increased for tonight. He claims that the suicidal thoughts have been decreasing in severity and he is trying to keep distracted on the unit. He states that he has been trying to go to groups and participate as best as he can. At this time patient denies any suicidal or homical ideations, intent or plan. Patient denies any auditory, visual hallucinations and denies any paranoia or delusions. Patient denies any side effects from the medications and has been compliant with meds. Mental Status Exam: General Appearance: Patient appears to be tall, well-built, stated age is alert, directable, and attempts to cooperate. Constricted affect, improving mildly. Patient appears to have poor hygiene and grooming. Behavior: Patient is seated without any agitated behavior. Speech: Patient's speech is fluent and nonpressured. Soft tone of voice. Mood/Affect: Patient reports their mood is depressed and anxious, affect is congruent and constricted. Suicidality/Homicidality: Patient denies having any homicidal ideation intent or plan. Denies any suicidal ideations intent or plan Perceptions: Patient denies any visual hallucinations and denies any auditory hallucinations Though content/process: less Focused on his stressors and his symptoms. Logical and goal oriented. Memory and concentration: AOX3, grossly intact for the purposes of this session Judgment and insight: poor, improving mildly Assessment Major depressive disorder, recurrent, severe without psychotic features Anxiety disorder unspecified Cannabis use disorder Plan: -Patient continues to meet criteria for inpatient psychiatric admission for symptom stabilization and safety. Patient has signed adult voluntary form and medication consent and was placed in patient's chart. -Medications: Increase Zoloft to 100 mg daily for mood/anxiety. Increased trazodone to 100 mg daily at bedtime for mood/insomnia. Vistaril when necessary for anxiety. Benadryl when necessary for insomnia. -When necessary Ativan and Haldol for agitation/aggression. -NRT -not needed as patient does not smoke. -SW on board for discharge planning. Encouraged the patient to participate in milieu.
[2020-12-03] MEDS: SERTRALINE 50 MG TAB PO SCH (09:28)
[2020-12-03] MEDS: TRIAMCINOLONE 0.1% CREAM 80 GM TUBE TOPICAL SCH ×2 (09:42→21:00)
[2020-12-03] MEDS: LURASIDONE 40 MG TAB PO SCH (10:58)
[2020-12-03] MEDS: hydrOXYzine pamoate 25 MG CAP PO PRN (15:23)
[2020-12-03] MEDS: LORazepam 1 MG TAB PO PRN (16:38)
[2020-12-03] MEDS ORDERED: traZODone HCL 100 MG TAB PO SCH (21:00)
[2020-12-04] MEDS: TRIAMCINOLONE 0.1% CREAM 80 GM TUBE TOPICAL SCH ×2 (08:53→20:53)
[2020-12-04] MEDS: SERTRALINE 100 MG TAB PO SCH (08:53)
--- NOTE | 2020-12-04 10:36 | P.PN ---
Progress Note - Text Progress Note Date: 12/04/20 Interval History: Patient was seen lying in bed this morning and was directable and agreeable to speak with securities underwriter in the office. Patient appears to have mild improvement in his affect today and appears to be more cooperative with securities underwriter during the conversation. He states that he is feeling mild improvement in his mood today once again however claims that he is continuing to feel anxious. He states that the Ativan has been helping with his anxiety and states that yesterday he tried the Vistaril however it did not help him. Patient was agreeable to try BuSpar today for his anxiety. He states that he was able to get approximately 4-5 hours of sleep last night on the trazodone and states that it has been helping him and was asking to have increased once again 150 mg. He claims that today he is trying to keep himself busy on the unit and has been reading his books. He states that he is not thinking about suicide any longer today. He states that he has been trying to go to groups and participate as best as he can. At this time patient denies any suicidal or homical ideations, intent or plan. Patient denies any auditory, visual hallucinations and denies any paranoia or delusions. Patient denies any side effects from the medications and has been compliant with meds. Mental Status Exam: General Appearance: Patient appears to be tall, well-built, stated age is alert, directable, and attempts to cooperate. Constricted affect, improving mildly. Patient appears to have improving hygiene and grooming. Behavior: Patient is seated without any agitated behavior. Speech: Patient's speech is fluent and nonpressured. Mood/Affect: Patient reports their mood is improving mildly, affect is congruent and constricted. Suicidality/Homicidality: Patient denies having any homicidal ideation intent or plan. Denies any suicidal ideations intent or plan Perceptions: Patient denies any visual hallucinations and denies any auditory hallucinations Though content/process: less Focused on his stressors and his symptoms. Logical and goal oriented. More future oriented Memory and concentration: AOX3, grossly intact for the purposes of this session Judgment and insight: improving mildly Assessment Major depressive disorder, recurrent, severe without psychotic features Anxiety disorder unspecified Cannabis use disorder Plan: -Patient continues to meet criteria for inpatient psychiatric admission for symptom stabilization and safety. Patient has signed adult voluntary form and medication consent and was placed in patient's chart. -Medications: Continue with Zoloft to 100 mg daily for mood/anxiety. Increased trazodone to 150 mg daily at bedtime for mood/insomnia. Discontinued Vistaril and replaced with BuSpar 15 mg twice a day for anxiety. Benadryl when necessary for insomnia. -When necessary Ativan and Haldol for agitation/aggression. -NRT -not needed as patient does not smoke. -SW on board for discharge planning. Encouraged the patient to participate in milieu. pantry worker to contact patient's parents and prepare for possible discharge tomorrow. Will ensure that guns and weapons are secured and locked away or remove from the hospital.
[2020-12-04] MEDS: busPIRone HCl 5 MG TAB PO SCH ×2 (11:02→20:52)
[2020-12-04] MEDS ORDERED: traZODone HCL 50 MG TAB PO SCH (21:00)
[2020-12-05] MEDS: SERTRALINE 100 MG TAB PO SCH (08:27)
[2020-12-05] MEDS: busPIRone HCl 5 MG TAB PO SCH (08:27)
[2020-12-05 08:36] VITALS: BP 128/83; PULSE 86; RESP 20; TEMP 97.4
[2020-12-05] MEDS: TRIAMCINOLONE 0.1% CREAM 80 GM TUBE TOPICAL SCH (08:48)
--- NOTE | 2020-12-05 09:27 | P.DS ---
Providers Date of admission: 12/01/20 22:19 Expected date of discharge: 12/05/20 Attending physician: Justus Felix MD Consults: 12/01/20 22:45 Consult Physician Routine Consulting Provider: Valentin Ledesma Consult Reason/Comments: H&P and medical Do you want consulting provider notified?: Yes Primary care physician: Arie Prieto - Discharge Diagnosis(es) (1) Major depressive disorder without psychotic features Current Visit: Yes Status: Acute Priority: High (2) Anxiety disorder Current Visit: Yes Status: Acute Priority: Medium (3) Cannabis use disorder, mild, abuse Current Visit: Yes Status: Acute Priority: Low Hospital Course: Admission HPI: Admission note was completed by filing writer "Patient is a 35-year-old male who is currently lives alone in an apartment and 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 Patient presented to the hospital yesterday with complaints of ongoing depression. According to ER report patient apparently had put a shotgun in his bath 2 times yesterday however was unable to pull the trigger. He stated that he has been having an increase in his suicidal thoughts feeling more lonely and depressed and spoke about his divorce in the ER. He also had an issue with hematuria and had a computed tomography scan which was negative however will be following up with urology once he is discharged. Patient's UDS is positive for marijuana. Patient was seen wandering the hallways today and agreeable speech regular in the office. He appeared to have poor hygiene and grooming however states that he has been dealing with depression for over 5 years now. He claims that yesterday he was crying and his friend over the phone who brought him in the hospital. He claims that he had a ketamine infusion however states that "I was in a bad mindset with it". He states that he has been having negative thoughts towards it and also had a "bad episode" however was vague about what this meant. He states that he was preoccupied with his self-hate and suicidal thoughts and spoke about being a "failure" and also spoke about "being ". He states that he has been doing the ketamine infusion for the past 4 months now and states that he doesn't once a month in [place]. He states that the last dose did not help him as the previous ones . He claimed that he's been having poor sleep and poor appetite. He admits to ongoing anxiety. He states that the guns that he put in his mouth were at his parent's house and are now locked away and he does not have any guns at his apartment.. He does not admit to any history of manic episodes in the past. Patient denies any suicidal or homicidal ideations intent or plan. At this time patient denies any auditory or visual hallucinations. Patient denies any flight of ideas racing thoughts and increased in goal directed behavior. Patient admits to using marijuana frequently. He denies any other recreational drug use." Hospital course: Upon admission to the unit patient was initially depressed and anxious. Patient was however directable and agreeable to commence treatment and signed adult voluntary form. Patient got along well with other patients on the unit and followed unit protocol. Patient was compliant with the medications and denied any side effects throughout hospital course. Patient was started on Zoloft and titrated the dose of 100 mg daily for mood/anxiety, trazodone titrated dose of 150 mg daily at bedtime for mood/insomnia. Patient attempted to try Vistaril for anxiety however he requested to have it discontinued and try BuSpar instead. Patient did much better on BuSpar and was increased to a dose of 20 mg twice a day for anxiety. Patient spoke of his stressors and engaged in therapy both group and individual. Patient was also seen by medical team for history and physical exam. Throughout the course of the hospitalization patient gradually improved with regards to mood, anxiety, sleep and became more future oriented with improved insight and judgment. On the day of discharge patient denied any suicidal or homicidal ideations intent or plan denied any auditory or visual hallucinations. Patient endorsed wanting to live for his future and his family. Patient claims that the guns have been locked away and taken from his home. marble worker also confirmed that at their parents house, the guns were secured and locked away. Patient denied any paranoia and did not endorse any delusions. Patient does have a significant history of substance abuse and was counseled on abstaining from all substances including alcohol and marijuana. Patient one to cut back on his marijuana use himself. Patient was also counseled on the medications and need for regular compliance and was encouraged to follow-up with their outpatient appointment for mental health and also for primary care. Prior to discharge a family meeting with patient's parents will be arranged by social worker clinical to answer any questions and ensure safety upon discharge. Mental status exam: General Appearance: Patient appears to be tall, well-built, stated age is alert, pleasant, and cooperative. Patient is in no acute distress and has improved hygiene and grooming Behavior: Patient is calmly seated without any agitated behavior. Speech: Patient's speech is fluent and nonpressured. Mood/Affect: Patient reports their mood is "better", affect is congruent and euthymic. Suicidality/Homicidality: Patient denies having any suicidal or homicidal ideation intent or plan. Perceptions: Patient denies any auditory or visual hallucinations. Though content/process: There is no evidence of any delusional thought content and thought process is linear and goal-directed. more future oriented Memory and concentration: AOX3, grossly intact for the purposes of this session. Can spell "WORLD" backwards correctly. Judgment and insight: improved with guarded prognosis Impression: Major depressive disorder, recurrent, severe without psychotic features Anxiety disorder unspecified Cannabis use disorder Plan: -Continue with discharge today as patient has improved and stabilized psychiatrically and is not currently an imminent threat to himself and/or others. Patient will remain at chronically elevated risk for harm to self and/or others due to his impulsivity and history of handling guns in a dangerous manner. -Continue medications: Zoloft 100 mg daily for mood/anxiety, trazodone 150 mg daily at bedtime for mood/insomnia, BuSpar 20 mg twice a day for anxiety. -Patient was counseled on the need for medication compliance and appropriate follow-up at mental health and also primary care for medical issues. Patient verbalized understanding and agreed. -Social work to arrange for and conduct family meeting to ensure safety upon discharge and answer any questions/concerns and to ensure that guns were removed and/or locked away. Social work also to arrange for patients follow up appointments for psychiatric care along with follow up with primary care provider. -Patient counseled on abstaining from recreational drugs and marijuana and alcohol. Was informed/educated on the adverse effects on their physical and mental health. Patient verbally agreed and understood. -Patient was instructed to return to the hospital or seek immediate medical care if their psychiatric or medical symptoms do worsen or reoccur. Allergies Allergy/AdvReac Type Severity Reaction Status Date / Time cariprazine [From [facility]] Allergy Unknown Verified 12/01/20 19:24 Laboratory Results WBC 11.2 k/uL (3.8-10.6) H 12/01/20 16:47 RBC 5.10 m/uL (4.30-5.90) 12/01/20 16:47 Hgb 16.3 gm/dL (13.0-17.5) 12/01/20 16:47 Hct 46.0 % (39.0-53.0) 12/01/20 16:47 MCV 90.1 fL (80.0-100.0) 12/01/20 16:47 MCH 31.9 pg (25.0-35.0) 12/01/20 16:47 MCHC 35.4 g/dL (31.0-37.0) 12/01/20 16:47 RDW 12.6 % (11.5-15.5) 12/01/20 16:47 Plt Count 282 k/uL (150-450) 12/01/20 16:47 MPV 6.9 12/01/20 16:47 Neutrophils % 79 % 12/01/20 16:47 Lymphocytes % 15 % 12/01/20 16:47 Monocytes % 4 % 12/01/20 16:47 Eosinophils % 1 % 12/01/20 16:47 Basophils % 0 % 12/01/20 16:47 Neutrophils # 8.8 k/uL (1.3-7.7) H 12/01/20 16:47 Lymphocytes # 1.7 k/uL (1.0-4.8) 12/01/20 16:47 Monocytes # 0.4 k/uL (0-1.0) 12/01/20 16:47 Eosinophils # 0.1 k/uL (0-0.7) 12/01/20 16:47 Basophils # 0.0 k/uL (0-0.2) 12/01/20 16:47 Sodium 140 mmol/L (137-145) 12/01/20 16:47 Potassium 3.9 mmol/L (3.5-5.1) 12/01/20 16:47 Chloride 104 mmol/L (98-107) 12/01/20 16:47 Carbon Dioxide 23 mmol/L (22-30) 12/01/20 16:47 Anion Gap 13 mmol/L 12/01/20 16:47 BUN 12 mg/dL (9-20) 12/01/20 16:47 Creatinine 0.94 mg/dL (0.66-1.25) 12/01/20 16:47 Est GFR (CKD-EPI)AfAm >90 (>60 ml/min/1.73 sqM) 12/01/20 16:47 Est GFR (CKD-EPI)NonAf >90 (>60 ml/min/1.73 sqM) 12/01/20 16:47 Glucose 122 mg/dL (74-99) H 12/01/20 16:47 Calcium 9.7 mg/dL (8.4-10.2) 12/01/20 16:47 Total Bilirubin 0.7 mg/dL (0.2-1.3) 12/01/20 16:47 AST 35 U/L (17-59) 12/01/20 16:47 ALT 67 U/L (4-49) H 12/01/20 16:47 Alkaline Phosphatase 55 U/L (38-126) 12/01/20 16:47 Total Protein 8.0 g/dL (6.3-8.2) 12/01/20 16:47 Albumin 4.8 g/dL (3.5-5.0) 12/01/20 16:47 Urine Color Yellow 12/01/20 16:13 Urine Appearance Clear (Clear) 12/01/20 16:13 Urine pH 5.5 (5.0-8.0) 12/01/20 16:13 Ur Specific [place] 1.033 (1.001-1.035) 12/01/20 16:13 Urine Protein 2+ (Negative) H 12/01/20 16:13 Urine Glucose (UA) Negative (Negative) 12/01/20 16:13 Urine Ketones 3+ (Negative) H 12/01/20 16:13 Urine Blood Trace (Negative) H 12/01/20 16:13 Urine Nitrite Negative (Negative) 12/01/20 16:13 Urine Bilirubin 1+ (Negative) H 12/01/20 16:13 Urine Urobilinogen 2.0 mg/dL (<2.0) 12/01/20 16:13 Ur Leukocyte Esterase Negative (Negative) 12/01/20 16:13 Urine RBC 3 /hpf (0-5) 12/01/20 16:13 Urine WBC 5 /hpf (0-5) 12/01/20 16:13 Ur Squamous Epith Cells 1 /hpf (0-4) 12/01/20 16:13 Hyaline Casts 7 /lpf (0-2) H 12/01/20 16:13 Urine Mucus Many /hpf (None) H 12/01/20 16:13 Urine Opiates Screen Not Detected (NotDetected) 12/01/20 16:13 Ur Oxycodone Screen Not Detected (NotDetected) 12/01/20 16:13 Urine Methadone Screen Not Detected (NotDetected) 12/01/20 16:13 Ur Propoxyphene Screen Not Detected (NotDetected) 12/01/20 16:13 Ur Barbiturates Screen Not Detected (NotDetected) 12/01/20 16:13 U Tricyclic Antidepress Not Detected (NotDetected) 12/01/20 16:13 Ur Phencyclidine Scrn Not Detected (NotDetected) 12/01/20 16:13 Ur Amphetamines Screen Not Detected (NotDetected) 12/01/20 16:13 U Methamphetamines Scrn Not Detected (NotDetected) 12/01/20 16:13 U Benzodiazepines Scrn Not Detected (NotDetected) 12/01/20 16:13 Urine Cocaine Screen Not Detected (NotDetected) 12/01/20 16:13 U Marijuana (THC) Screen Detected (NotDetected) H 12/01/20 16:13 Coronavirus (PCR) Not Detected (Not Detectd) 12/01/20 19:07 Vital Signs Temp 97.4 F L 12/05/20 08:28 Pulse 86 12/05/20 08:28 Resp 20 12/05/20 08:28 BP 128/83 12/05/20 08:28 Pulse Ox 98 12/05/20 08:28 Patient Condition at Discharge: Stable Plan - Discharge Summary Discharge Rx Participant: No New Discharge Prescriptions: New busPIRone HCl [Buspar] 20 mg PO BID 30 Days tab traZODone HCL 150 mg PO HS 30 Days tablet Acetaminophen Tab [Tylenol] 650 mg PO Q4HR PRN tab PRN Reason: Pain/Discomfort Sertraline [Zoloft] 100 mg PO DAILY 30 Days tab Continue Triamcinolone 0.1% Cream [Kenalog 0.1% Cream] 1 applicatio TOPICAL BID Ketoconazole [Ketoconazole 2% Shampoo] 1 applic TOPICAL DAILY Discontinued Lurasidone [Latuda] 40 mg PO DAILY Discharge Medication List Ketoconazole [Ketoconazole 2% Shampoo] 1 applic TOPICAL DAILY 12/01/20 [History] Triamcinolone 0.1% Cream [Kenalog 0.1% Cream] 1 applicatio TOPICAL BID 12/01/20 [History] Acetaminophen Tab [Tylenol] 650 mg PO Q4HR PRN tab 12/05/20 [Rx] Sertraline [Zoloft] 100 mg PO DAILY 30 Days tab 12/05/20 [Rx] busPIRone HCl [Buspar] 20 mg PO BID 30 Days tab 12/05/20 [Rx] traZODone HCL 150 mg PO HS 30 Days tablet 12/05/20 [Rx] Follow up Appointment(s)/Referral(s): Arie Prieto MD [Primary Care Provider] - 1-2 days Activity/Diet/Wound Care/Special Instructions: Activity and diet as tolerated. Avoid the use of street drugs and alcohol. Take all medications as prescribed. When you are in need of refills on your medications please contact your medical provider and/or outpatient psychiatrist to have this done. Please go to scheduled outpatient appointment for aftercare treatment. If symptoms return or become worse, call the crisis line at and/or go to the nearest emergency room for evaluation. Discharge Disposition: HOME SELF-CARE
== END 2020-12-05 12:01 | disposition home or self-care (01) | DRG 885 ==
LOC: EC 15:49 → 3MHU 22:19
PROVIDERS: ADMIT Psychiatry & Neurology Psychiatry; ATTEND Psychiatry & Neurology Psychiatry
DX: F33.2 Major depressive disorder, recurrent severe without psychotic features (principal); R45.851 Suicidal ideations; F12.10 Cannabis abuse, uncomplicated; Z20.822 Contact with and (suspected) exposure to COVID-19; F41.9 Anxiety disorder, unspecified; F51.04 Psychophysiologic insomnia; Z79.899 Other long term (current) drug therapy; Z81.8 Family history of other mental and behavioral disorders; Z63.5 Disruption of family by separation and divorce; Z60.2 Problems related to living alone; Z56.0 Unemployment, unspecified; R63.0 Anorexia; Z68.32 Body mass index [BMI] 32.0-32.9, adult; R31.9 Hematuria, unspecified; Z88.8 Allergy status to other drugs, medicaments and biological substances
CPT/HCPCS: 36415; 74178; 80053; 80306; 81001; 82075; 85025; 87635; 90686; 99285

== ENCOUNTER 2021-02-15 01:21 | Emergency (ER) | payer MEDICAID, OTHER ==
[2021-02-15 01:28] VITALS: TEMP 97.8
[2021-02-15] MEDS ORDERED: SODIUM CHLORIDE 0.9% 1,000 ML IV STA ×2 (01:30)
[2021-02-15] MEDS ORDERED: SODIUM CHLORIDE 0.9% 500 ML 500 ML IV STA (01:30)
[2021-02-15 02:00] LABS: Basophils % (A) 0 %; Eosinophils # (A) 0.1 k/uL (0-0.7); Eosinophils % (A) 1 %; HCT 40.9 % (39.0-53.0); HGB 14.4 gm/dL (13.0-17.5); Lymphocytes # (A) 1.3 k/uL (1.0-4.8); Lymphocytes % (A) 12 %; MCH 32.2 pg (25.0-35.0); MCHC 35.3 g/dL (31.0-37.0); MCV 91.2 fL (80.0-100.0); Mean Platelet Volume 7.2; Monocytes # (A) 0.5 k/uL (0-1.0); Monocytes % (A) 4 %; Neutrophils # (A) 9.4 k/uL (1.3-7.7); Neutrophils % (A) 82 %; Platelet Count 216 k/uL (150-450); RBC 4.49 m/uL (4.30-5.90); RDW 12.4 % (11.5-15.5); WBC 11.4 k/uL (3.8-10.6)
--- NOTE | 2021-02-15 02:05 | ED ---
Alcohol HPI - General Chief Complaint: Alcohol Stated Complaint: ETOH Time Seen by Provider: 02/15/21 01:25 Source: patient, EMS Mode of arrival: EMS Limitations: no limitations - Related Data Home Medications Medication Instructions Recorded Confirmed Ketoconazole [Ketoconazole 2% 1 applic TOPICAL DAILY 12/01/20 12/01/20 Shampoo] Triamcinolone 0.1% Cream [Kenalog 1 applicatio TOPICAL BID 12/01/20 12/01/20 0.1% Cream] Previous Rx's Medication Instructions Recorded Acetaminophen Tab [Tylenol] 650 mg PO Q4HR PRN tab 12/05/20 Sertraline [Zoloft] 100 mg PO DAILY 30 Days tab 12/05/20 busPIRone HCl [Buspar] 20 mg PO BID 30 Days tab 12/05/20 traZODone HCL 150 mg PO HS 30 Days tablet 12/05/20 Allergies Allergy/AdvReac Type Severity Reaction Status Date / Time cariprazine [From [facility]] Allergy Unknown Verified 12/01/20 19:24 Review of Systems ROS Statement: Those systems with pertinent positive or pertinent negative responses have been documented in the HPI. ROS Other: All systems not noted in ROS Statement are negative. Past Medical History Past Medical History: No Reported History History of Any Multi-Drug Resistant Organisms: None Reported Past Surgical History: No Surgical Hx Reported Past Anesthesia/Blood Transfusion Reactions: No Reported Reaction Past Psychological History: No Psychological Hx Reported Smoking Status: Never smoker Past Alcohol Use History: None Reported Past Drug Use History: None Reported General Exam Limitations: no limitations Course Vital Signs 02/15/21 02/15/21 01:22 01:51 Temperature 97.8 F Pulse Rate 80 75 Respiratory 16 16 Rate Blood Pressure 116/84 106/67 O2 Sat by Pulse 98 99 Oximetry Medical Decision Making - Lab Data Result diagrams: 02/15/21 01:36 02/15/21 01:36 Lab Results 02/15/21 02/15/21 02/15/21 Range/Units 01:36 01:36 01:36 WBC 11.4 H (3.8-10.6) k/uL RBC 4.49 (4.30-5.90) m/uL Hgb 14.4 (13.0-17.5) gm/dL Hct 40.9 (39.0-53.0) % MCV 91.2 (80.0-100.0) fL MCH 32.2 (25.0-35.0) pg MCHC 35.3 (31.0-37.0) g/dL RDW 12.4 (11.5-15.5) % Plt Count 216 (150-450) k/uL MPV 7.2 Neutrophils % 82 % Lymphocytes % 12 % Monocytes % 4 % Eosinophils % 1 % Basophils % 0 % Neutrophils # 9.4 H (1.3-7.7) k/uL Lymphocytes # 1.3 (1.0-4.8) k/uL Monocytes # 0.5 (0-1.0) k/uL Eosinophils # 0.1 (0-0.7) k/uL Basophils # 0.0 (0-0.2) k/uL PT 11.4 (9.0-12.0) sec INR 1.1 (<1.2) Sodium 142 (137-145) mmol/L Potassium 4.5 (3.5-5.1) mmol/L Chloride 108 H (98-107) mmol/L Carbon Dioxide 20 L (22-30) mmol/L Anion Gap 14 mmol/L BUN 15 (9-20) mg/dL Creatinine 1.09 (0.66-1.25) mg/dL Est GFR (CKD-EPI)AfAm >90 (>60 ml/min/1.73 sqM) Est GFR (CKD-EPI)NonAf 88 (>60 ml/min/1.73 sqM) Glucose 103 H (74-99) mg/dL Calcium 8.6 (8.4-10.2) mg/dL Phosphorus 3.5 (2.5-4.5) mg/dL Magnesium 2.0 (1.6-2.3) mg/dL Total Bilirubin 0.1 L (0.2-1.3) mg/dL AST 33 (17-59) U/L ALT 39 (4-49) U/L Alkaline Phosphatase 50 (38-126) U/L Total Protein 6.7 (6.3-8.2) g/dL Albumin 4.3 (3.5-5.0) g/dL Lipase 86 (23-300) U/L Serum Alcohol 201 H* mg/dL Disposition Clinical Impression: Alcoholic intoxication Disposition: HOME SELF-CARE Condition: Good Instructions (If sedation given, give patient instructions): Alcohol Intoxication (ED) Is patient prescribed a controlled substance at d/c from ED?: No Referrals: Arie Prieto MD [Primary Care Provider] - 1-2 days
[2021-02-15 02:10] LABS: INR 1.1 (<1.2); Prothrombin Time 11.4 sec (9.0-12.0)
[2021-02-15 02:22] LABS: ALT 39 U/L (4-49); AST 33 U/L (17-59); African American GFR (CKD) >90 (>60 ml/min/1.73 sqM); Albumin 4.3 g/dL (3.5-5.0); Alkaline Phosphatase 50 U/L (38-126); Anion Gap 14 mmol/L; Blood Urea Nitrogen 15 mg/dL (9-20); Calcium 8.6 mg/dL (8.4-10.2); Carbon Dioxide 20 mmol/L (22-30); Chloride 108 mmol/L (98-107); Glucose 103 mg/dL (74-99); Lipase 86 U/L (23-300); Non-African American GFR(CKD) 88 (>60 ml/min/1.73 sqM); Phosphorus 3.5 mg/dL (2.5-4.5); Potassium 4.5 mmol/L (3.5-5.1); Sodium 142 mmol/L (137-145); Total Bilirubin 0.1 mg/dL (0.2-1.3); Total Protein 6.7 g/dL (6.3-8.2)
[2021-02-15 02:24] LABS: Alcohol 201 mg/dL
--- NOTE | 2021-02-15 02:24 | XR ---
EXAM: XR Chest, 1 View CLINICAL HISTORY: ITS.REASON XR Reason: vomiting TECHNIQUE: Frontal view of the chest. COMPARISON: No relevant prior studies available. FINDINGS: Lungs: Unremarkable. No acute infiltration, atelectasis or mass. Pleural space: Unremarkable. No pneumothorax or pleural fluid. Heart: Unremarkable. No cardiomegaly. Mediastinum: Unremarkable. Bones/joints: No acute findings. IMPRESSION: No acute findings in the chest.
[2021-02-15] MEDS ORDERED: KETOROLAC 15 MG/ML 1 ML VIAL IVP STA (02:35)
[2021-02-15 03:14] VITALS: RESP 18
[2021-02-15 06:05] VITALS: BP 110/72; PULSE 78
== END 2021-02-15 06:06 | disposition home or self-care (01) ==
LOC: EC 01:21
DX: F10.129 Alcohol abuse with intoxication, unspecified (principal); Y90.7 Blood alcohol level of 200-239 mg/100 ml
CPT/HCPCS: 36415; 80053; 83690; 83735; 84100; 85025; 85610; 71045; 99284; 96361 ×4; 96374; G0480; J1885; 80320

== ENCOUNTER → 2023-08-29 | Outpatient (CLI) | payer OTHER ==
--- NOTE | 2023-08-30 23:13 | MR ---
EXAMINATION TYPE: MR cspine/tspine wo con DATE OF EXAM: 08/29/2023 7:04 PM CLINICAL INDICATION:Male, 37 years old with history of M54.6,M54.2; PHH, Neck pain, bilateral shoulde r pain down to fingers, and mid back pain for 1 year due to falling and breaking a table. COMPARISON: None TECHNIQUE: Multi planar, multi sequence imaging was performed utilizing: T1-weighted, T2-weighted, a nd turbo inversion recovery imaging of the cervical and thoracic spine. MR contrast: IV Contrast: None. FINDINGS: CERVICAL: Alignment: The cervical vertebral bodies have preserved heights. Alignment is within normal limits gi carla patient positioning. Bones: Scattered Modic endplate changes with osteophytes and disc space narrowing. Multilevel degener ative disc disease is noted and most pronounced at the C4-C7 vertebral levels. No abnormal bony edema on inversion recovery sequences. Cord: The spinal cord is unremarkable with regards to their signal intensity and morphology. Discs: Multilevel disc desiccation is present. C2-C3: No significant disc pathology. The spinal canal is patent. No neural foraminal stenosis. C3-C4: No significant disc pathology. The spinal canal is patent. No neural foraminal stenosis. C4-C5: No significant disc pathology. The spinal canal is patent. Bilateral facet and uncovertebral joint arthropathy are present with mild bilateral neural foraminal stenosis. C5-C6: A disc osteophyte complex is present with mild spinal canal stenosis. Bilateral facet and unc overtebral joint arthropathy are present with mild to moderate right and mild left neural foraminal s tenosis. C6-C7: No significant disc pathology. The spinal canal is patent. Bilateral facet and uncovertebral joint arthropathy are present with moderate right and mild left neural foraminal stenosis. C7-T1: No significant disc pathology. The spinal canal is patent. Bilateral facet and uncovertebral joint arthropathy are present with mild bilateral neural foraminal stenosis. THORACIC: No evidence significant spinal canal or neural foraminal stenosis. Spinal cord is within no rmal limits. Multilevel degeneration changes with osteophyte formation and mild disc space narrowing. Other: None. IMPRESSION: 1. No definitive evidence of disc herniation or significant spinal canal stenosis. 2. Mild to moderate disc degeneration with associated osteoarthritic changes worse in the cervical s pine at C5-C6 and C6-C7.
== END | disposition home or self-care (01) ==
LOC: RADMRIMAIN 18:01
PROVIDERS: ATTEND Orthopaedic Surgery
DX: M50.322 Other cervical disc degeneration at C5-C6 level (principal); M50.323 Other cervical disc degeneration at C6-C7 level; M47.812 Spondylosis without myelopathy or radiculopathy, cervical region; M54.6 Pain in thoracic spine; W19.XXXA Unspecified fall, initial encounter
CPT/HCPCS: 72141; 72146

== ENCOUNTER → 2023-11-03 | Outpatient (CLI) | payer OTHER ==
[2023-11-03 14:37] VITALS: BP 144/95; PULSE 101; RESP 16
--- NOTE | 2023-11-03 14:37 | P.PAINPG ---
PQRS Measure Charge Sheet Comment: HISTORY OF PRESENT ILLNESS: A 38 yr old male w mother at side as a referral from [facility], [place] presents today w severe and chronic neck pain x 6 mo secondary to DDD, spondylosis and facet arthropathy without myelopathy for evaluation. Pt states pain level is provoked at 8/10 in intensity, constant, localized in the mid to lower cervical spine, predominantly axial, sharp in character w occasional shooting pain towards the BUEs. Pain is provoked by over activity. Pain is alleviated by chiropractic treatments weekly x 6 mo w last visit in Jul 2023, alternating heat & ice, medications (Ibu, Tyl), topical Icy-Hot, THC products, repositioning and rest. Cervical disability score at 23. PMH: OA, MDD PSH: Denies SH: Never smoker, Hx of ETOH abuse, THC use FH: Noncontributory All: See list Meds: See list REVIEW OF ORGAN SYSTEMS: CONSTITUTIONAL: No fevers or chills. No recent weight loss. NEUROLOGICAL: + numbness and tingling along the distal extremities. No seizure disorders or headaches. MUSCULOSKELETAL: + pain PSYCHIATRIC: Denies current depression or suicidal thoughts. Physical Examinations : Constitutional : Cooperative , not in acute distress . Neurologic : Cranial nerve II to XII intact. No focal neurological deficits. Psychiatric : alert & oriented x 3. Matching mood & appropriate affect. Judgment & insight intact. Musculoskeletal : Cervical Spine Motor strength in the deltoid and biceps: Normal right side. Normal Left side Motor strength biceps and the wrist extensors: Normal right side . Normal left side Motor strength in the triceps muscle: Normal right side. Normal left side Deep tendon reflexes: Normal at the biceps. Normal at Brachioradialis. Normal at triceps Vertebral body tenderness to deep pal pation over C6 Cervical facet loading test: positive bilaterally Spurling test: positive bilaterally C6- C7 Neck distraction test: positive bilaterally Smooth sign: positive bilaterally Lumbar spine Motor strength lower extremities ,thigh and legs 5/5 Right side , 5/5 Left side Deep tendon reflexes : Normal Knee Jerk. Normal Ankle Jerk Vertebral body tenderness over Hansen Test positive Lumbar facet Loading Test: positive Right / positive Left Range of motion of the lumbar spine Flexion 30 degrees, extension 10 degrees Straight Leg Raise test: Left/ Right positive at degrees Kimberly test: positive right / positive left. Severe tenderness over the Sacroiliac joint on the Right / Left sides Gaenslen test: positive bilaterally Seated flexion test: positive bilaterally. Sacral spine : Severe tenderness over the Sacroiliac joint: right side / left side Range of motion: Flexion of the lumbar spine <60 degrees Range of motion: Extension of the lumbar spine <20 degrees Gaenslen's Test positive Kimberly test: positive right side / left side Thigh Thrust Test Sacral Thrust Test Imaging: MRI noncontrast of the cervical spine from 08/29/23 reviewed Assessment/ Plan : Cervical DDD Recommendation of ADRIAN C6-C7 #1. May need a series of injections for optimal pain relief. Risks, benefits of procedure discussed and patient verbalized understanding. Admits to anti- coagulant use or medical history of diabetes. Protocol for discontinuation/ continuation of medications duc procedure discussed. All questions answered. I have spent greater than 30 minutes on patient care today. Dr Kurtz was available by phone for the evaluation of this patient. The time was used to review the medical records including relevant urine studies and Prescription history (MAPs), review of the available imaging, evaluation and examination of the patient, coordination of care with the medical staff and if applicable referring physicians, as well as creation of the medical record PQRS Narrative: Smoking Status Current some day smoker Home Medications: Ambulatory Orders Ketoconazole [Ketoconazole 2% Shampoo] 1 applic TOPICAL DAILY 12/01/20 Triamcinolone 0.1% Cream [Kenalog 0.1% Cream] 1 applicatio TOPICAL BID 12/01/20 Acetaminophen Tab [Tylenol] 650 mg PO Q4HR PRN tab 12/05/20 Sertraline [Zoloft] 100 mg PO DAILY 30 Days tab 12/05/20 busPIRone HCl [Buspar] 20 mg PO BID 30 Days tab 12/05/20 traZODone HCL 150 mg PO HS 30 Days tablet 12/05/20 Controlled Substance Measures - Controlled Substance Measures Is patient prescribed a controlled substance at discharge?: No
== END ==
LOC: PNWHC3 13:38
PROVIDERS: ATTEND Specialist
DX: M50.123 Cervical disc disorder at C6-C7 level with radiculopathy (principal); M47.22 Other spondylosis with radiculopathy, cervical region; F17.200 Nicotine dependence, unspecified, uncomplicated; M19.90 Unspecified osteoarthritis, unspecified site; F32.9 Major depressive disorder, single episode, unspecified; Z88.8 Allergy status to other drugs, medicaments and biological substances
CPT/HCPCS: 99211

== ENCOUNTER 2023-11-15 12:10 | Day surgery (SDC) | payer OTHER ==
[2023-11-10 15:35] VITALS: BMI 31.6
[2023-11-15 12:44] VITALS: TEMP 98.6
[2023-11-15] MEDS ORDERED: IOPAMIDOL M300 15ML VIAL ONE (13:25)
[2023-11-15] MEDS ORDERED: DEXAMETHASONE SOD PHOSPHATE 10 MG/ML 1 ML VIAL ONE (13:25)
[2023-11-15] MEDS ORDERED: ROPIVACAINE 5MG/ML 20ML VIAL ONE (13:25)
[2023-11-15 13:46] VITALS: RESP 18
--- NOTE | 2023-11-15 13:48 | P.PCN ---
Description of Procedure: PROCEDURE 1. Injection of radio contrast material into cervical epidural space, cervical epidurogram, interpretation of cervical epidurogram, Cervical epidural steroid injection under fluoroscopic guidance, C6-7 (fluoroscopy images available in the radiology department ) 2. Cervical epidurogram. PREOPERATIVE DIAGNOSIS: 1- Cervical Degenerative Disc Diseases 2- Cervical radiculopathy., 3-cervical spondylosis with cervical Facet arthropathy without myelopathy.4-cervical spinal stenosis POSTOPERATIVE DIAGNOSIS: : 1- Cervical Degenerative Disc Diseases , 2- Cervical radiculopathy. 3-,cervical spondylosis with cervical Facet arthropathy without myelopathy. 4-cervical spinal stenosis ANESTHESIA: Local anesthetics infiltration. In the OR continuous pulse ox, EKG, blood pressure and verbal communication was maintained. EBL : None PROCEDURE INDICATION: The patient with neck pain and radiculitis unresponsive to conservative treatment consents for procedure. Discussed the procedure, alternatives and possible complications which may include increased pain, infection, bleeding, nerve damage, paralysis all of which could be permanent. Patient understands and all questions were answered. PROCEDURE DESCRIPTION : After getting consent patient was taken to the OR , positioned in prone position and time out was completed. A pillow was placed under the patients chest to increase the cervical interlaminar space. The cervical area was prepped and draped in the usual sterile fashion. Using anterior-posterior fluoroscopy, interlaminar space was identified and the skin over this site was marked and then infiltrated with 1% lidocaine subcutaneously. Subsequently, a 20-gauge 3-1/2-inch Tuohy epidural needle was inserted and advanced toward the epidural space with the loss of resistance technique using a syringe filled with preservative-free normal saline and guided by AP and lateral fluoroscopy. Negative CSF, negative blood, negative paresthesia. The correct needle position in the epidural space was verified with the injection of 2 mL of the water soluble contrast dye [id number]-200 and observing an excellent epidurogram with the epidural spread of the dye, after repeat negative aspiration 3 mL solution was injected which consists of 1 mL of preservative-free normal saline mixed with 2 mL of 20 mg dexamethasone and a washout of epidurogram was seen. Needle was withdrawn intact, skin was cleansed, and bandages were applied. Disposition: Patient tolerated the procedure well. No complication. Patient was placed in supine position and transferred to the recovery room area in stable condition and there was no evidence of upper or lower extremity motor or sensory deficit after the procedure patient was discharged from recovery room after discharge criteria met and home discharge instructions was given by the staff and patient will follow with the pain clinic in 2-4 weeks
--- NOTE | 2023-11-15 13:58 | P.PCN ---
Description of Procedure: Preprocedure diagnosis. Myofascial pain. Myofascial trigger point. Postprocedure diagnosis. As above. Procedure done. Myofascial trigger point injection with local anesthetics and steroid at 3 points. Anesthesia. Local anesthetic infiltration. In the OR continuous pulse ox, EKG, blood pressure, and verbal communication was maintained with the patient. Blood loss. None. Indication. Discussed with the patient procedure, alternatives and possible complications which may include infection, bleeding, nerve damage, aggravation of pain. Patient understands and all questions were answered. Procedure note. After getting consent patient in the procedure area. Most tender points were identified and marked. A 25-gauge needle attached to syringe was introduced at the trigger points and after negative aspiration 3 mL solution injected at each trigger point. I injected 3 trigger points over the left lumber paraspinal area L4,L5,S1 levels Total 9 mL of 0.5% ropivacaine mixed with 40 mg of Depo-Medrol. Disposition. Patient tolerated the procedure well. No complication. Discharged home in stable condition.
[2023-11-15 14:16] VITALS: BP 142/89; PULSE 78
--- NOTE | 2023-11-16 07:58 | FL ---
EXAMINATION TYPE: FL guided pain mgmt statistic DATE OF EXAM: 11/15/2023 FLUOROSCOPY Fluoroscopy time of 19.5 seconds was used during cervical epidural steroid injection. 3 image/s docu ment/s the procedure. DAP [id number] mGycm2.
== END 2023-11-15 14:12 | disposition home or self-care (01) ==
LOC: ORPAIN 12:10
PROVIDERS: ATTEND Pain Medicine Interventional Pain Medicine
DX: M50.123 Cervical disc disorder at C6-C7 level with radiculopathy (principal); M48.02 Spinal stenosis, cervical region; M47.22 Other spondylosis with radiculopathy, cervical region
CPT/HCPCS: 62321; J1100; Q9967; J2795

== ENCOUNTER → 2023-11-21 | Outpatient (CLI) | payer OTHER ==
--- NOTE | 2023-11-21 17:16 | US ---
EXAMINATION TYPE: US venous doppler duplex UE LT DATE OF EXAM: 11/21/2023 COMPARISON: NONE CLINICAL INDICATION: Male, 38 years old with history of I80.9 PHLEBITIS; IV left hand last Tuesday, pa in and swelling SIDE PERFORMED: left Left Arm: Negative for DVT the basilic vein is thrombosed from the upper arm to the termination of the vessel, SVT IMPRESSION: 1. No evidence of left upper extremity DVT. 2. SVT involving the basilic vein.
== END | disposition home or self-care (01) ==
LOC: RADUSWWP 15:55
PROVIDERS: ATTEND Family Medicine
DX: I82.612 Acute embolism and thrombosis of superficial veins of left upper extremity (principal); I80.9 Phlebitis and thrombophlebitis of unspecified site

== ENCOUNTER → 2023-12-01 | Outpatient (CLI) | payer OTHER ==
--- NOTE | 2023-12-01 12:33 | P.PAINPG ---
Objective - Vital Signs Vital signs: Intake & Output 11/30/23 12/01/23 12/01/23 18:59 06:59 18:59 Weight 113.398 kg PQRS Measure Charge Sheet Comment: HISTORY OF PRESENT ILLNESS: A 38 yr old male w mother at side presents today w severe and chronic neck pain x 6 mo secondary to DDD, spondylosis and facet arthropathy without myelopathy for evaluation s/p ADRIAN C6-C7 #1. Pt states he experienced 70% pain relief x 3 wks s/p procedure. Pt states pain level is provoked at 3/10 in intensity, constant, localized in the mid to lower cervical spine, predominantly axial, sharp in character w occasional shooting pain towards the BUEs. Pain is provoked by over activity. Pain is alleviated by chiropractic treatments weekly x 6 mo w last visit in Jul 2023, alternating heat & ice, medications, topical , THC products, repositioning and rest. Cervical disability score at 21. Interventional procedures include ADRIAN C6-C7 x1 Medications include Ibu, Tyl, Icy-Hot, THC use REVIEW OF ORGAN SYSTEMS: CONSTITUTIONAL: No fevers or chills. No recent weight loss. NEUROLOGICAL: + numbness and tingling along the distal extremities. No seizure disorders or headaches. MUSCULOSKELETAL: + pain PSYCHIATRIC: Denies current depression or suicidal thoughts. Physical Examinations : Constitutional : Cooperative , not in acute distress . Neurologic : Cranial nerve II to XII intact. No focal neurological deficits. Psychiatric : alert & oriented x 3. Matching mood & appropriate affect. Judgment & insight intact. Musculoskeletal : Cervical Spine Motor strength in the deltoid and biceps: Normal right side. Normal Left side Motor strength biceps and the wrist extensors: Normal right side . Normal left side Motor strength in the triceps muscle: Normal right side. Normal left side Deep tendon reflexes: Normal at the biceps. Normal at Brachioradialis. Normal at triceps Vertebral body tenderness to deep p alpation over C6 Cervical facet loading test: positive bilaterally Spurling test: positive bilaterally C6- C7 Neck distraction test: positive bilaterally Smooth sign: positive bilaterally Lumbar spine Motor strength lower extremities ,thigh and legs 5/5 Right side , 5/5 Left side Deep tendon reflexes : Normal Knee Jerk. Normal Ankle Jerk Vertebral body tenderness over Hansen Test positive Lumbar facet Loading Test: positive Right / positive Left Range of motion of the lumbar spine Flexion 30 degrees, extension 10 degrees Straight Leg Raise test: Left/ Right positive at degrees Kimberly test: positive right / positive left. Severe tenderness over the Sacroiliac joint on the Right / Left sides Gaenslen test: positive bilaterally Seated flexion test: positive bilaterally. Sacral spine : Severe tenderness over the Sacroiliac joint: right side / left side Range of motion: Flexion of the lumbar spine <60 degrees Range of motion: Extension of the lumbar spine <20 degrees Gaenslen's Test positive Ikmberly test: positive right side / lef t side Thigh Thrust Test Sacral Thrust Test Imaging: MRI noncontrast of the cervical spine from 08/29/23 reviewed Assessment/ Plan : Cervical DDD Will manage residual pain and may RTC on an as needed basis. All questions answered. I have spent greater than 30 minutes on patient care today. Dr Kurtz was available by phone for the evaluation of this patient. The time was used to review the medical records including relevant urine studies and Prescription history (MAPs), review of the available imaging, evaluation and examination of the patient, coordination of care with the medical staff and if applicable referring physicians, as well as creation of the medical record PQRS Narrative: Smoking Status Current some day smoker Hx Alcohol Use (MH) No Home Medications: Ambulatory Orders Ketoconazole [Ketoconazole 2% Shampoo] 1 applic TOPICAL DAILY 12/01/20 Triamcinolone 0.1% Cream [Kenalog 0.1% Cream] 1 applicatio TOPICAL BID 12/01/20 Acetaminophen Tab [Tylenol] 650 mg PO Q4HR PRN tab 12/05/20 Sertraline [Zoloft] 100 mg PO DAILY 30 Days tab 12/05/20 busPIRone HCl [Buspar] 20 mg PO BID 30 Days tab 12/05/20 QUEtiapine FUMARATE [SEROquel] 300 mg PO HS 11/10/23 Controlled Substance Measures - Controlled Substance Measures Is patient prescribed a controlled substance at discharge?: No
[2023-12-01 12:52] VITALS: BP 132/76; PULSE 79; RESP 15; TEMP 98.6
== END ==
LOC: PNWHC3 12:07
PROVIDERS: ATTEND Specialist
DX: M50.322 Other cervical disc degeneration at C5-C6 level (principal); M50.323 Other cervical disc degeneration at C6-C7 level; F17.200 Nicotine dependence, unspecified, uncomplicated; F12.90 Cannabis use, unspecified, uncomplicated; Z88.8 Allergy status to other drugs, medicaments and biological substances
CPT/HCPCS: 99211

== ENCOUNTER → 2024-03-08 | Outpatient (CLI) | payer OTHER ==
[2024-03-08 20:42] LABS: BUN/Creat Ratio 11.09 Ratio (12.00-20.00); Blood Urea Nitrogen 12.2 mg/dL (9.0-27.0); Calcium 10.5 mg/dL (8.7-10.3); Carbon Dioxide 21.9 mmol/L (21.6-31.8); Chloride 103 mmol/L (96-109); Glucose 118 mg/dL (70-110); Potassium 4.4 mmol/L (3.5-5.5); Sodium 142 mmol/L (135-145)
== END | disposition home or self-care (01) ==
LOC: LABWHC1 09:10
PROVIDERS: ATTEND Family Medicine
DX: F33.2 Major depressive disorder, recurrent severe without psychotic features (principal)
CPT/HCPCS: 36415; 80048